=== PATIENT | male | born 1955 | race Caucasian/White ===

== ENCOUNTER 2018-06-02 13:47 | Emergency (ER) | payer OTHER, MEDICAID ==
[2018-06-02 14:54] LABS: PLATELET COUNT 325 10^3/uL (150-400)
--- NOTE | 2018-06-02 15:07 | EDPHY ---
H & P Stated Complaint: abnormal labs/elevated potassium Time Seen by Provider: 06/02/18 14:25 HPI/ROS: CHIEF COMPLAINT: High potassium HISTORY OF PRESENT ILLNESS: 62-year-old male with myelodysplastic syndrome, DM and HTN presents with hyperkalemia. On a routine blood test yesterday, potassium was 5.7. He is currently asymptomatic. The patient was sent here by his oncologist for further evaluation. No recent change in medications and not currently being treated for MDS. He has not been ill recently. No vomiting or diarrhea. REVIEW OF SYSTEMS: complete 10 point ROS reviewed and is negative except for the noted elements in the HPI - Personal History Current Tetanus Diphtheria and Acellular Pertussis (TDAP): No - Medical/Surgical History Hx Asthma: No Hx Chronic Respiratory Disease: No Hx Diabetes: Yes Hx Cardiac Disease: No Hx Renal Disease: No Hx Cirrhosis: No Hx Alcoholism: No Hx HIV/AIDS: No Hx Splenectomy or Spleen Trauma: No Other PMH: MDS/diabetic - Social History Smoking Status: Never smoked Alcohol Use: Sober - Physical Exam Exam: General Appearance: Alert, pleasant Eyes: Pupils equal and round, no conjunctival pallor ENT, Mouth: Mucous membranes moist Neck: Normal inspection Respiratory: Lungs are clear to auscultation Cardiovascular: Regular rate and rhythm Gastrointestinal: Abdomen is soft and nontender Back: NT tumor rt upper back Neurological: A&O, nonfocal exam Skin: Warm and dry, no rash Extremities: Nontender, no pedal edema Psychiatric: Mood and affect normal Constitutional: Initial Vital Signs Temperature (C) 36.9 C 06/02/18 14:00 Heart Rate 90 06/02/18 14:00 Respiratory Rate 17 06/02/18 14:00 Blood Pressure 135/72 H 06/02/18 14:00 O2 Sat (%) 94 06/02/18 14:00 O2 Delivery Mode Room Air Allergies/Adverse Reactions: No Known Allergies Allergy (Unverified 06/02/18 13:58) Home Medications: Medication Instructions Recorded Famotidine 06/02/18 Gabapentin 06/02/18 Lantus 06/02/18 Metformin 1000 mg 06/02/18 Nateglinide 06/02/18 [place] 5/325 (*) 06/02/18 Ramipril 06/02/18 Medical Decision Making - Diagnostics EKG Interpretation: EKG interpreted by me reveals normal sinus rhythm, rate 83, 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 Interpretation: Abnormal EKG ED Course/Re-evaluation: EKG is unremarkable, intervals normal; no EKG signs of hyperkalemia. Repeat potassium is 4.9. Presentation c/w initial potassium lab error/hemolysis. Will d/c pt home. - Data Points Laboratory Results: Laboratory Results 06/02/18 14:40 06/02/18 14:40 Departure - Departure Disposition: Home, Routine, Self-Care Clinical Impression: normal potassium Condition: Good Instructions: Additional Information Additional Instructions: Your repeat potassium level is normal (4.9). Followup with your physician. Referrals: MARY GUERRERO [Other] - As per Instructions
[2018-06-02 15:28] VITALS: BP 132/78
--- NOTE | 2018-06-02 16:58 | CPEKG ---
Test Reason : OPEN Blood Pressure : / mmHG Vent. Rate : 083 BPM Atrial Rate : 084 BPM P-R Int : 130 ms QRS Dur : 167 ms QT Int : 397 ms P-R-T Axes : 028 -76 033 degrees QTc Int : 467 ms Sinus rhythm RBBB and LAFB Confirmed by Jami Cespedes ([id number]) on 06/02/2018 4:57:54 PM Referred By: Confirmed By:Jami Cespedes
== END 2018-06-02 15:27 | disposition home or self-care (01) ==
DX: R79.89 Other specified abnormal findings of blood chemistry (principal); E11.9 Type 2 diabetes mellitus without complications; I10 Essential (primary) hypertension; D46.9 Myelodysplastic syndrome, unspecified